=== PATIENT | female | born 1970 | race Caucasian/White ===

== ENCOUNTER 2016-04-25 01:27 | Emergency (ER) | payer MEDICAID ==
[2016-04-25] MEDS ORDERED: EPINEPHrine 1 MG/10 ML SYR IV ONE (02:16)
[2016-04-25] MEDS ORDERED: ATROPINE 1 MG/10 ML SYRINGE IV ONE (02:16)
[2016-04-25] MEDS ORDERED: SOD BICARB 8.4% SYR 50 ML ONE (02:19)
== END 2016-04-25 05:30 | disposition expired ==
LOC: ER 01:27 → EDBD 01:27 → ER 05:30
CPT/HCPCS: 92950; 96374; 96375